=== PATIENT | male | born 1955 | race Caucasian/White ===

== ENCOUNTER 2017-10-01 05:41 | Inpatient (IN) | payer BC, OTHER ==
[2017-09-09 10:51] VITALS: BMI 37.0
--- NOTE | 2017-09-09 11:22 | PAT Medication Instructions ---
Service Date Sep 09, 2017. Current Home Medication List Aspirin (Aspirin Ec), 81 MG PO Q2D Bupropion (Wellbutrin Sr), 150 MG PO BID Celecoxib (CeleBREX), 200 MG PO BID Cholecalciferol (Vitamin D3), 1 TAB PO QAM Docusate Sodium (Stool Softener Extra Stre), 250 MG PO QAM Duloxetine HCl (Cymbalta), 1 CAP PO QAM Exenatide (Bydureon), 1 DOSE IM WEEKLY Fenofibrate (Tricor ), 145 MG PO HS Furosemide (Lasix), 40 MG PO QAM Glimepiride (Glimepiride), 2 TAB PO QAM Glucosamine Sulfate (Glucosamine), 1,000 MG PO BID Lisinopril (Prinivil), 10 MG PO QAM Magnesium Oxide (Mag-Ox), 2 TAB PO QAM Metformin Hcl (Glucophage Ext Rel), 1,000 MG PO BID Montelukast Sodium (Singulair), 10 MG PO QPM Pantoprazole (Protonix), 40 MG PO QAM Probiotic Product (Probiotic), 1 CAP PO QAM Sucralfate (Carafate), 1 GM PO QID Medication Instructions For Your Scheduled Surgery -Contact your surgeon for instructions for: Aspirin (Aspirin Ec), 81 MG PO Q2D Celecoxib (CeleBREX), 200 MG PO BID Continue as directed: Exenatide (Bydureon), 1 DOSE IM WEEKLY - Hold the following medications 2 weeks prior to surgery: Glucosamine Sulfate (Glucosamine), 1,000 MG PO BID - Hold the following medications 48 hours prior to surgery: Metformin Hcl (Glucophage Ext Rel), 1,000 MG PO BID - Hold the following medications the morning of surgery: Sucralfate (Carafate), 1 GM PO QID Probiotic Product (Probiotic), 1 CAP PO QAM Lisinopril (Prinivil), 10 MG PO QAM Magnesium Oxide (Mag-Ox), 2 TAB PO QAM Glimepiride (Glimepiride), 2 TAB PO QAM Furosemide (Lasix), 40 MG PO QAM Cholecalciferol (Vitamin D3), 1 TAB PO QAM Docusate Sodium (Stool Softener Extra Stre), 250 MG PO QAM - Take the following medications the morning of surgery with a sip of water: Pantoprazole (Protonix), 40 MG PO QAM Bupropion (Wellbutrin Sr), 150 MG PO BID Duloxetine HCl (Cymbalta), 1 CAP PO QAM - Hold the following the night before sugery: Fenofibrate (Tricor ), 145 MG PO HS -Take the following medications as scheduled the night before surgery: Sucralfate (Carafate), 1 GM PO QID Montelukast Sodium (Singulair), 10 MG PO QPM Bupropion (Wellbutrin Sr), 150 MG PO BID If you have any questions please call us at [phone] or [phone] or [phone]
--- NOTE | 2017-09-09 12:20 | DIAGNOSTIC IMAGING REPORT ---
CHEST 2 VIEWS ROUTINE CLINICAL HISTORY: Preoperative chest COMPARISON STUDY: No previous studies for comparison. FINDINGS: There is mild elevation/eventration right hemidiaphragm. The heart is normal in size. There is no failure. There is no focal pulmonary consolidation. There are no pleural effusions. There are postsurgical changes of a reversed total right shoulder arthroplasty[ IMPRESSION: Moderate elevation/eventration of the right hemidiaphragm. Otherwise negative chest Electronically signed by: Ti Jimenez M.D. 09/09/2017 12:18 PM Dictated Date/Time: 09/09/2017 12:18 PM
[2017-09-09 12:29] LABS: BASO % 0.6 %; BASO ABS # 0.05 K/uL (0-0.2); COMPLETE YES; EOS % 1.7 %; IG% 0.1 %; LYMPH % 24.9 %; LYMPH ABS # 2.18 K/uL (1.2-3.4); MEAN CELL VOLUME 88.6 fL (80-100); MEAN CORPUSCULAR HEMOGLOBIN 28.9 pg (25-34); MEAN CORPUSCULAR HGB CONC 32.6 g/dl (32-36); MEAN PLATELET VOLUME 10.2 fL (7.4-10.4); MONO % 7.9 %; NEUT % 64.8 %; PLATELET COUNT 358 K/uL (130-400); RED BLOOD COUNT 4.74 M/uL (4.7-6.1); URINE APPEARANCE CLEAR (CLEAR); URINE BILIRUBIN NEG (NEG); URINE COLOR YELLOW; URINE NITRITE NEG (NEG); URINE SPECIFIC GRAVITY 1.016 (1.000-1.030); UROBILINOGEN NEG (NEG); WHITE BLOOD COUNT 8.77 K/uL (4.8-10.8)
[2017-09-09 12:32] LABS: MANUAL MICROSCOPIC REQUIRED? NO; REVIEW REQ? NO
[2017-09-09 14:19] LABS: BUN/CREATININE RATIO 24.5 (10-20); CALCIUM 9.8 mg/dl (8.5-10.1); CREATININE 1.3 mg/dl (0.60-1.40); POTASSIUM 4.4 mmol/L (3.5-5.1)
[2017-10-01] VITALS (15 sets, daily range): BP systolic 131–163; BP diastolic 70–90; PULSE 71–92; TEMP 36.3–36.8; O2SAT 94–98; Ht 177.8 cm; Wt 118.4 kg
[~2017-10-01] VITALS: Ht 177.8 cm; Wt 118.4 kg
[~2017-10-01 05:41] MED LIST: ASPI81TA28 PO; BUPR-79 PO; CHOL1000 PO; CLB/200 PO; CYM/30 PO; DOCU1CAP PO; EXEN1INJ3 IM; FENO145T26 PO; FRS/40 PO; GLIM1TAB2 PO; GLUC10007 PO; LISI10TA PO; MAGN400T6 PO; METF1TAB53 PO; MISCCAP80 PO; MONT1TAB3 PO; PANT40TA PO; SUCR1TAB29 PO
[2017-10-01] MEDS ORDERED: CEFAZOLIN 2000MG IV PUSH 10 ML IV SCH (06:00)
[2017-10-01] MEDS ORDERED: CEFAZOLIN SOD 2000MG/10 ML IV PUSH IV ONE (06:35)
[2017-10-01] MEDS ORDERED: MIDAZOLAM HCL 1 MG/ML 2ML VIAL ONE (06:47)
[2017-10-01] MEDS ORDERED: FENTANYL CITRATE INJ 50 MCG/1 ML 2 ML VIAL ONE ×3 (06:47→09:37)
[2017-10-01] MEDS ORDERED: BACITRACIN 50000 UNIT VIAL ONE (06:58)
[2017-10-01] MEDS ORDERED: BUPIVACAINE/EPINEPHRINE 0.5% MPF 1:200,000 30 ML VIAL ONE (06:58)
[2017-10-01] MEDS ORDERED: LACTATED RINGER'S 1000ML 1,000 ML IV SCH (07:00)
--- NOTE | 2017-10-01 07:37 | History & Physical Bridge Note ---
H&P Re-Evaluation Bridge Note: I have examined the patient, reviewed the History & Physical and in the interval since the performance of the History & Physical I have noted the following changes of clinical significance: No changes noted
--- NOTE | 2017-10-01 07:39 | History and Physical ---
History & Physical Date Oct 01, 2017. Chief Complaint Neck and arm pain History of Present Illness The patient is a 62 year old male with complaints of neck and arm pain Additional History Hepatic Disease: No Endocrine Disorder: No Kidney Disease: No Hypertension: Yes Heart Disease: No Bleeding Tendencies: No Infectious Diseases: No Allergies Coded Allergies: No Known Allergies (Unverified , 10/01/17) Home Medications Scheduled Aspirin (Aspirin Ec), 81 MG PO Q2D Bupropion (Wellbutrin Sr), 150 MG PO BID Celecoxib (CeleBREX), 200 MG PO BID Cholecalciferol (Vitamin D3), 1 TAB PO QAM Docusate Sodium (Stool Softener Extra Stre), 250 MG PO QAM Duloxetine HCl (Cymbalta), 1 CAP PO QAM Exenatide (Bydureon), 1 DOSE IM WEEKLY Fenofibrate (Tricor ), 145 MG PO HS Furosemide (Lasix), 40 MG PO QAM Glimepiride (Glimepiride), 2 TAB PO QAM Glucosamine Sulfate (Glucosamine), 1,000 MG PO BID Lisinopril (Prinivil), 10 MG PO QAM Magnesium Oxide (Mag-Ox), 2 TAB PO QAM Metformin Hcl (Glucophage Ext Rel), 1,000 MG PO BID Montelukast Sodium (Singulair), 10 MG PO QPM Pantoprazole (Protonix), 40 MG PO QAM Probiotic Product (Probiotic), 1 CAP PO QAM Sucralfate (Carafate), 1 GM PO QID Physical Examination Skin: warm/dry, no rash Eyes: normal inspection, EOMI, sclerae normal ENT: normal ENT inspection, pharynx normal Head: normocephalic, atraumatic Neck: supple, no adenopathy, trachea midline Respiratory/Chest: lungs clear, normal breath sounds, no respiratory distress Cardiovascular: regular rate, rhythm, no edema, no murmur Abdomen / GI: normal bowel sounds, non tender Back: normal inspection Extremities: normal inspection, normal range of motion Neurologic/Psych: no motor/sensory deficits, alert, normal reflexes, oriented x 3 Diagnosis Cervical spinal stenosis Plan of Treatment C4 corpectomy
[2017-10-01] MEDS ORDERED: HYDROmorphone INJ 2 MG/ML SYR/VIAL ONE (08:19)
[2017-10-01] MEDS ORDERED: SODIUM CHLORIDE 0.9% PF 50 ML VIAL ONE (08:21)
[2017-10-01] MEDS ORDERED: ONDANSETRON INJ 2 MG/ML 2 ML VIAL IV PRN ×2 (08:30→09:45)
[2017-10-01] MEDS ORDERED: EpHEDrine SULFATE INJ 50 MG/ML AMP IV PRN (08:30)
[2017-10-01] MEDS ORDERED: HYDROmorphone INJ 2 MG/ML SYR/VIAL IV PRN (08:30)
[2017-10-01] MEDS ORDERED: ATROPINE SULFATE 0.1 MG/ML 5ML SYR IV PRN (08:30)
[2017-10-01] MEDS ORDERED: PHENYLEPHRINE 100MCG/ML 5ML SYR IV PRN (08:30)
[2017-10-01] MEDS ORDERED: PROPOFOL IV EMULSION 10 MG/ML 20 ML VIAL IV ONE (09:29)
[2017-10-01] MEDS ORDERED: ONDANSETRON INJ 2 MG/ML 2 ML VIAL ONE (09:29)
[2017-10-01] MEDS ORDERED: GLYCOPYRROLATE INJ 0.2 MG/ML VIAL ONE (09:29)
[2017-10-01] MEDS ORDERED: ROCURONIUM BROMIDE 10 MG/ML 5 ML VIAL IV ONE (09:29)
[2017-10-01] MEDS ORDERED: LIDOCAINE HCL 2% 2 ML VIAL (20MG/ML) ONE (09:29)
[2017-10-01] MEDS ORDERED: EpHEDrine SULFATE 50MG/5ML SYR ONE (09:29)
[2017-10-01] MEDS ORDERED: NEOSTIGMINE METHYLSULFATE 1 MG/ML 10ML VIAL ONE (09:29)
[2017-10-01] MEDS ORDERED: DEXAMETHASONE SOD INJ 4 MG/ML VIAL ONE (09:29)
[2017-10-01] MEDS ORDERED: FLOSEAL HEMOSTATIC MATRIX 5ML TOP ONE (09:36)
[2017-10-01] MEDS ORDERED: DiphenhydrAMINE HCL 50 MG/ML VIAL IV PRN (09:45)
[2017-10-01] MEDS ORDERED: MAGNESIUM HYDROXIDE SUSP 30 ML UDC PO PRN (09:45)
[2017-10-01] MEDS ORDERED: DO NOT ADMINISTER FLU VACCINE PRN ×3 (09:45)
[2017-10-01] MEDS ORDERED: DEXAMETHASONE INJ 8 MG in SYRINGE 0 ML IV PRN (09:45)
[2017-10-01] MEDS ORDERED: LORAZEPAM INJ 0.5 MG in SYRINGE 0.75 ML IV PRN (09:45)
[2017-10-01] MEDS ORDERED: DO NOT ADMINISTER PNEUMOCOCCAL VACCINE PRN ×2 (09:45)
[2017-10-01] MEDS ORDERED: LORAZEPAM 0.5 MG TAB PO PRN (09:45)
[2017-10-01] MEDS ORDERED: NALOXONE HCL 0.4 MG/1 ML VIAL/CARP IV PRN (09:45)
[2017-10-01] MEDS ORDERED: RACEPINEPHRINE 2.25% NEBU SOLN 0.5 ML VIAL INH PRN (09:45)
[2017-10-01] MEDS ORDERED: ACETAMINOPHEN IV 100 ML IV PRN (09:45)
--- NOTE | 2017-10-01 09:45 | [facility] Operative Report ---
Operative Report Operative Date Oct 01, 2017. Pre-Operative Diagnosis Cervical spinal stenosis Post-Operative Diagnosis same as pre-operative Procedure(s) Performed #1 anterior cervical corpectomy C4. #2 anterior cervical arthrodesis C3 to C5. #3 placement peek cage 23 mm in height C3 to C 5. #4 placement of low plate and screws from C3 to C5. #5 placement of locally harvested morcellized autograft combined with ostial amp in the interbody cage. Surgeon Dr. Brennon Guerrero Apple Picker Surgeon(s) GOPI Sahni Estimated Blood Loss 25ml Findings Severe spinal stenosis Specimens none per surgeon Description of Procedure Patient was met with preoperatively case discussed all questions addressed. After informed consent was obtained patient was taken operative suite placed in a supine position the head in [employer] headholder. All bony prominences were well-padded eyes were inspected to ensure no external pressure placed upon them. This point the anterior cervical spine was prepped and draped in the normal sterile fashion. With the assistance of fluoroscopy identified the C4 vertebral body. A transverse incision was placed along the right anterior aspect of cervical spine overlying this region. Sharp dissection with the assistance of bipolar electrocautery was performed onto an exposing the anterior cervical spine from C3 to C5. I then performed a complete discectomy of C3 4 out to the uncovertebral joints bilaterally followed by C45. Platinum distracting pins were then placed in C3 and C5 to distract across C5 vertebral body. A complete corpectomy was then performed including removal of all posterior annular fibers and longitudinal ligament and bilateral foraminotomies. After complete decompression endplates were burred to subcortical bleeding bone and a 23 mm peek cage filled with locally harvested morcellized autograft and ostial amp bone graft tapped in position. Distracting apparatus was removed all anterior osteophytes burred to a smooth cortical surface and a low plate and screws applied with the assistance of fluoroscopy. Incision was in copious irrigated explored to ensure there is no damage to surrounding structures remaining bleeding 10 round ALDA drain was inserted. Incision was then closed with 1 Vicryl in the fascia 2-0 Vicryl subcutaneous tediously 4 Monocryl for Bebe closure Steri-Strips sterile dressings placed. Patient we can taken to PACU stable condition. Please note Maty Costa was present at the entire procedure involved in patient positioning complex portions of the surgery and final skin closure. I attest to the content of the Intraoperative Record and any orders documented therein. Any exceptions are noted below.
[2017-10-01] MEDS ORDERED: LABETALOL HCL IV 5 MG/ML 20ML IV ONE (09:48)
[2017-10-01] MEDS ORDERED: PHARMACY GLYCEMIC MGMT CONSULT PRN (09:52)
[2017-10-01] MEDS ORDERED: HYDROmorphone INJ 1 MG/ML SYR IV PRN (10:00)
--- NOTE | 2017-10-01 10:18 | DIAGNOSTIC IMAGING REPORT ---
Cervical SPINE, INTRAOPERATIVE FLUOROSCOPY HISTORY: C4 corpectomy with ACDF.. FLUOROSCOPY TIME: 9 seconds. FINDINGS: Intraoperative fluoroscopy was provided for the cervical spine. 2 fluoroscopic spot images were obtained. Anterior cervical discectomy and fusion at C3-C5 with a C4 corpectomy. The hardware appears intact. IMPRESSION: Fluoroscopy provided for a C3-C5 ACDF.. Electronically signed by: Palomo Bray M.D. 10/01/2017 10:17 AM Dictated Date/Time: 10/01/2017 10:16 AM
--- NOTE | 2017-10-01 10:40 | Anesthesiology Progress Note ---
Anesthesia Post Op Note Date & Time Oct 01, 2017 at 10:40 Vital Signs Pain Intensity: 0 Vital Signs Past 12 Hours Date Time Temp Pulse Resp B/P (MAP) Pulse Ox O2 Delivery O2 Flow Rate FiO2 10/01/17 10:35 70 16 145/83 97 Nasal Cannula 2 10/01/17 10:25 71 16 141/83 97 Nasal Cannula 2 10/01/17 10:15 69 16 145/82 100 Oxymask 10 10/01/17 10:05 69 16 144/80 99 Oxymask 10 10/01/17 09:55 36.3 73 16 156/86 96 Oxymask 10 10/01/17 06:08 36.8 81 18 159/90 98 Room Air Notes Mental Status: alert / awake / arousable, participated in evaluation Pt Amnestic to Procedure: Yes Nausea / Vomiting: adequately controlled Pain: adequately controlled Airway Patency, RR, SpO2: stable & adequate BP & HR: stable & adequate Hydration State: stable & adequate Anesthetic Complications: no major complications apparent
--- NOTE | 2017-10-01 10:59 | Pharmacy Progress Note ---
Glycemic Control Intl Consult Date of Service Oct 01, 2017. Scope Glycemic Pharmacist consulted by Dr Guerrero on 10/01/17 for glycemic control and to write orders per [facility] inpatient glycemic control protocol Objective Weight (Kilograms): 118.40 Accuchecks BSG (last 24hrs): Test 10/01/17 06:00 10/01/17 09:57 Bedside Glucose 138 mg/dl (70-99) 131 mg/dl (70-99) Recent Pertinent Medications Outpatient Anti-diabetic Regimen: * Bydureon 2 mg weekly * Amaryl 2mg qAM * Metformin ER 1 gm BID * A1c = unknown Risk Factors for Insulin Resistance: * Steroids: Decadron intraop (potentially up to 12 mg), 6 mg IV q8h x 3 doses postop * Recent Surgery: POD 0 s/p spinal surgery * Diet: ordered a clear liquid diet postop Assessment & Plan ASSESSMENT: * 62 y/o male with a history of type 2 diabetes, unknown control as no recent A1c available * Baseline BSGs today are not awful - 138 and 131 * He is POD 0 s/p spinal surgery and will receive the usual 3 doses of postop Decadron, which will significantly elevate BSGs * Will plan to hold outpatient regimen and utilize basal/bolus insulin as an inpatient, with plans to resume outpatient regimen 1-2 days prior to discharge * Initial dosing for today based on insulin calculator estimates using a stress of 3 and patient's weight, with the FULL 24 hour dose of basal given at once to combat the postop steroids PLAN FOR INPATIENT GLYCEMIC CONTROL: * Holding outpatient oral diabetes medications * Basal insulin with LANTUS 60 units x 1 now, further dosing tomorrow will be based upon BSGs * Correctional Insulin with NOVOLOG / REGULAR per scale ACHS + 0200 * Goal Range: Low 110 mg/dL - High 150 mg/dL * Correction Factor: 15 mg/dL/unit * Nutritional / Prandial insulin per carb ratio of 1 unit per 5 grams CHO consumed * A1c with AM labs to help guide outpatient recommendations * Please note that the plan above was derived based on current level of insulin resistance and hospital stress. These recommendations are appropriate for inpatient admission only. Plan of care upon discharge will need to be reassessed to avoid potential outpatient hypo/hyperglycemia. Thank you.
[2017-10-01] MEDS ORDERED: DEXTROSE 50% 50 ML SYR IV PRN (11:45)
[2017-10-01] MEDS ORDERED: GLUCOSE 40% GEL 15 GM TUBE PO PRN (11:45)
[2017-10-01] MEDS ORDERED: GLUCAGON FOR INJ 1 MG VIAL SQ PRN (11:45)
[2017-10-01] MEDS ORDERED: INSULIN GLARGINE SOLOSTAR 100 UNITS/ML 3 ML PEN SC ONE (11:45)
[2017-10-01] MEDS ORDERED: GLUCOSE 10 TABS/TUBE PO PRN (11:45)
[2017-10-01] MEDS: LACTATED RINGER'S 1000ML 1,000 ML IV SCH ×2 (11:46→21:26)
[2017-10-01] MEDS ORDERED: SCOPOLAMINE 1.5 MG TDSY TD SCH (12:00)
[2017-10-01] MEDS ORDERED: SUCRALFATE 1 GM TAB PO SCH (13:00)
[2017-10-01] MEDS ORDERED: SUCRALFATE 1 GM TAB PO ONE (13:00)
[2017-10-01] MEDS: OXYCODONE HCL IR 5 MG TAB (IMMEDIATE RELEASE) PO PRN ×3 (13:28→19:59)
[2017-10-01] MEDS: INSULIN ASPART 100 UNITS/ML 3 ML PEN SC SCH ×3 (13:35→21:00)
[2017-10-01] MEDS: CEFAZOLIN IV 2,000 MG in SYRINGE 0 ML IV SCH ×2 (13:36→21:24)
--- NOTE | 2017-10-01 13:53 | Discharge Instructions ---
Discharge Instructions Date of Service Oct 01, 2017. Admission Reason for Admission: Spinal Stenosis Discharge Discharge Diagnosis / Problem: cervical spinal stenosis Discharge Goals Goal(s): Improve function Activity Recommendations Activity Limitations: per Instructions/Follow-up section . Instructions / Follow-Up Instructions / Follow-Up ACTIVITY RECOMMENDATIONS: SELF CARE INSTRUCTIONS AFTER CERVICAL FUSIONS 1. No smoking. Smoking drastically decreases the chance of a solid fusion. 2. No bending, lifting more than 5 pounds, or twisting (roll like a log when turning in bed). 3. You may shower 3 days after surgery. Thoroughly dry wound. Do not soak in the tub. 4. Cervical collar: Must be worn at all times including sleeping. You may remove the brace only to bath, eat and if you are sitting in a recliner. 5. Please walk as much as you can for exercise. Gradually increase the distance that you walk as your endurance increases. SPECIAL CARE INSTRUCTIONS: VERY IMPORTANT TO READ AND REVIEW A. Do not take any anti-inflammatory medications (i.e. Indocin, Advil, Aspirin, Naprosyn, Aleve, Motrin, etc.) as these may inhibit the chance of a solid fusion. Tylenol is okay to take. B. Your surgical incision has been closed with a cosmetic suture under the skin that will dissolve in about 6 weeks. In 14 days, you can use a pair of clean scissors and cut the suture that is left outside of the skin at the ends of your incision. C. Complications are uncommon, but please contact us if you have any signs or symptoms of: 1. wound infection (fever higher than 102.5 degrees F, redness, separation of wound, drainage, or increasing pain from the incision) 2. blood clots in legs (pain, swelling, redness and warmth in legs) 3. urinary tract infection (fever higher than 102.5 degrees, burning upon urination or increased frequency of urination) 4. nerve problems (inability to walk on your toes or heels, numbness, loss of bowel or bladder control) 5. any other symptoms that concern you. D. Please call the office at if you have any concerns or questions about your operation or recovery. MANAGING PAIN AFTER SPINAL SURGERY 1. Narcotic medication is intended for short-term use and will be provided for surgical pain. Surgical pain usually lasts for a period of 4-6 weeks. Narcotic medication includes Percocet, Vicodin, Darvocet, Tylenol #3 or Lortab. 2. Longer-term pain is more appropriately treated with non-narcotic medication such as Tylenol ES. 3. Muscle spasm is not appropriately treated with narcotics. Muscle relaxers such as Soma, Flexeril or Skelaxin can be used along with Tylenol ES. 4. Remember that we all live with some "aches and pains". This is not unusual or uncommon after an injury or as we get older. 5. We will provide appropriate medication within the normal guidelines of their prescribed use. We will also be very cautious and aware of potential abuse and extended duration of patients' medication needs. 6. Please allow 2-3 days to process refills. Prescriptions will not be mailed but must be picked up at the office. FOLLOW UP VISIT: Keep your scheduled follow-up appointment. Any questions, please call the office at . Current Hospital Diet Patient's current hospital diet: Clear Liquid Diet, Diabetes Type 2 Diet Discharge Diet Recommended Diet: Regular Diet Procedures Procedures Performed: #1 anterior cervical corpectomy C4. #2 anterior cervical arthrodesis C3 to C5. #3 placement peek cage 23 mm in height C3 to C 5. #4 placement of low plate and screws from C3 to C5. #5 placement of locally harvested morcellized autograft combined with ostial amp in the interbody cage. Pending Studies Studies pending at discharge: no Medical Emergencies . Who to Call and When: Medical Emergencies: If at any time you feel your situation is an emergency, please call 911 immediately. . Non-Emergent Contact Non-Emergency issues call your: Primary Care Provider . "Provider Documentation" section prepared by Brennon Guerrero. . VTE Core Measure Inpt VTE Proph given/why not?: Janice Strong, SCD's
[2017-10-01] MEDS ORDERED: RXC5 PO (13:54)
[2017-10-01] MEDS: CHECK SCOPOLAMINE PATCH PLACEMENT SCH (15:35)
[2017-10-01] MEDS: HYDROmorphone INJ 0.5 MG/0.5 ML SYR IV PRN ×2 (15:38→21:36)
[2017-10-01] MEDS: SUCRALFATE 1 GM/10 ML UDC PO SCH ×2 (17:47→21:24)
[2017-10-01] MEDS: DEXAMETHASONE INJ 6 MG in SYRINGE 0 ML IV SCH (17:50)
[2017-10-01] MEDS ORDERED: FENOFIBRATE 145 MG TAB PO SCH (21:00)
[2017-10-01] MEDS ORDERED: MONTELUKAST SOD 10 MG TAB PO SCH (21:00)
[2017-10-01] MEDS: DOCUSATE SODIUM 100 MG CAP PO SCH (21:25)
[2017-10-01] MEDS: BuPROPion SR 150 MG TABCR PO SCH (21:25)
[2017-10-02] VITALS (11 sets, daily range): BP systolic 138–158; BP diastolic 77–89; PULSE 76–87; TEMP 36.3–36.9; O2SAT 93–97
[2017-10-02] MEDS: CHECK SCOPOLAMINE PATCH PLACEMENT SCH ×2 (00:11→08:02)
[2017-10-02] MEDS ORDERED: INSULIN ASPART 100 UNITS/ML 3 ML PEN SC ONE (02:00)
[2017-10-02] MEDS: DEXAMETHASONE INJ 6 MG in SYRINGE 0 ML IV SCH ×2 (02:18→09:53)
[2017-10-02] MEDS: CEFAZOLIN IV 2,000 MG in SYRINGE 0 ML IV SCH (06:02)
[2017-10-02] MEDS: SUCRALFATE 1 GM/10 ML UDC PO SCH ×2 (08:02→11:46)
[2017-10-02] MEDS ORDERED: INSULIN GLARGINE SOLOSTAR 100 UNITS/ML 3 ML PEN SC ONE ×2 (08:30→21:00)
[2017-10-02 08:38] LABS: ESTIMATED AVERAGE GLUCOSE 128 mg/dl; HA1C FLAG Normal (Normal)
[2017-10-02] MEDS ORDERED: PANTOprazole SOD 40 MG TAB PO SCH (09:00)
[2017-10-02] MEDS ORDERED: MAGNESIUM OXIDE 400 MG TAB PO SCH (09:00)
[2017-10-02] MEDS ORDERED: LISINOPRIL 10 MG TAB PO SCH (09:00)
[2017-10-02] MEDS ORDERED: FUROSEMIDE 40 MG TAB PO SCH (09:00)
[2017-10-02] MEDS ORDERED: DULOXETINE (CYMBALTA) 30 MG CAP PO SCH (09:00)
--- NOTE | 2017-10-02 09:03 | Anesthesiology Progress Note ---
Anesthesia Post Op Note Date & Time Oct 02, 2017 at 09:03 Vital Signs Pain Intensity: 0.0 Vital Signs Past 12 Hours Date Time Temp Pulse Resp B/P (MAP) Pulse Ox O2 Delivery O2 Flow Rate FiO2 10/02/17 08:05 96 Room Air 10/02/17 07:43 36.5 84 19 158/89 (112) 93 Room Air 10/02/17 07:12 76 14 94 Nasal Cannula 2.0 10/02/17 06:10 36.3 77 18 142/77 94 Nasal Cannula 2.0 Humidified Oxygen 10/02/17 04:15 36.5 86 17 146/78 97 Nasal Cannula 2.0 Humidified Oxygen 10/02/17 02:55 79 16 97 Nasal Cannula 2.0 10/02/17 02:24 36.4 87 17 138/81 97 Nasal Cannula 2.0 Humidified Oxygen 10/02/17 00:14 36.4 87 17 144/78 96 Nasal Cannula 2.0 Humidified Oxygen 10/01/17 23:13 86 16 94 Nasal Cannula 2.0 10/01/17 22:11 36.5 92 18 163/87 96 Nasal Cannula 2.0 Humidified Oxygen Notes Mental Status: alert / awake / arousable, participated in evaluation Pt Amnestic to Procedure: Yes Nausea / Vomiting: adequately controlled Pain: adequately controlled Airway Patency, RR, SpO2: stable & adequate BP & HR: stable & adequate Hydration State: stable & adequate Anesthetic Complications: no major complications apparent
[2017-10-02] MEDS: DOCUSATE SODIUM 100 MG CAP PO SCH (09:05)
[2017-10-02] MEDS: BuPROPion SR 150 MG TABCR PO SCH (09:05)
[2017-10-02] MEDS: INSULIN ASPART 100 UNITS/ML 3 ML PEN SC SCH (09:10)
--- NOTE | 2017-10-02 10:19 | Clinical Documentation Query ---
IDA Ewing : CLINICAL DOCUMENTATION QUERY Patient is a 62 year old male admitted to undergo elective posterior cervical spinal decompression and fusion. Noted history of hypertension. No other history noted despite lengthy home medication list. Please clarify as clinically appropriate as this affects measures of severity of illness and risk of mortality. In your clinical opinion is this patient being managed for: ( ) Type 2 diabetes mellitus, anxiety, depression, GERD, hypercholesterolemia ( ) Not Agree ( ) Other explanation of clinical findings (Please Explain) ( ) Unable to determine (Please Define) ( ) Need to Discuss The medical record reflects the following clinical findings, treatment, and risk factors. Clinical Indicators: As above Treatment: As above Risk Factors: Age, obesity Please clarify and document your clinical opinion in the progress notes and discharge summary. Terms such as "probable", "suspected", "likely", "questionable", "possible", or "still to be ruled out" are acceptable. IF IN AGREEMENT, YOU MUST DOCUMENT ABOVE DIAGNOSTIC STATEMENT IN DAILY PROGRESS NOTES AND DISCHARGE SUMMARY. This document is not part of the patient's record. Thank You, Arnav Chapman, MALCOLM [phone]
--- NOTE | 2017-10-02 11:22 | Pharmacy Progress Note ---
Pharmacy Glycemic Short Note 2 Date of Service Oct 02, 2017. ASSESSMENT: * BSGs 127-142 mg/dL over the past 24 hours * Received 67 units of insulin yesterday * With 2 more doses of Decadron today, will provide another dose of Lantus ( based on wt/stress level of 2 using full 24 hour dose) * Will wait until tonight to loosen the CF/CR PLAN FOR INPATIENT GLYCEMIC CONTROL: * Lantus 40 units this AM * Sliding scale dose for tonight if patient is still here * Continue Novolog ACHS * LOOSEN CF/CR to 20/7 with HS dosing PLAN FOR DISCHARGE: * A1c indicates excellent outpatient control * Continue outpatient regimen upon discharge * Since patient being discharged today and effects of steroids will still be on board, recommend to resume the Amaryl and metformin when he gets home
--- NOTE | 2017-10-02 12:25 | Discharge Summary ---
Orthopedic Discharge Summary Admission Date/Reason Oct 01, 2017 at 07:30 Spinal Stenosis. Discharge Date/Disposition Oct 02, 2017 Home Diagnosis Principal Diagnosis: Cervical spinal stenosis Admission Physical Exam As per Admitting History & Physical. Hospital Course Patient underwent anterior cervical discectomy corpectomy and fusion tolerated as well as taken to the orthopedic 4 postop we. Postop day #1 he was swallowing well no hoarseness arm symptoms improved subsequently discharge home discharge orders and instructions found on the chart for further review. Discharge Instructions Please refer to the electronic Patient Visit Report (Discharge Instructions) for additional information.
[2017-10-02] MEDS ORDERED: INSULIN ASPART 100 UNITS/ML 3 ML PEN SC SCH (21:00)
[2017-10-03] MEDS ORDERED: BISACODYL 10 MG SUPP PR PRN (06:00)
[2017-10-03] MEDS ORDERED: BISACODYL 5 MG TABEC PO PRN (06:00)
[2017-10-04] MEDS ORDERED: POLYETHYLENE (MIRALAX) 17 GM PACK PO SCH (09:00)
== END 2017-10-02 12:20 | disposition home or self-care (01) | DRG 473 ==
LOC: C.ACU 05:41 → C.3E 07:30 → ENRESERV 11:06
PROVIDERS: ADMIT Orthopaedic Surgery Orthopaedic Surgery of the Spine; ATTEND Orthopaedic Surgery Orthopaedic Surgery of the Spine
PROC: 0RB10ZZ Excision of Cervical Vertebral Joint, Open Approach (ICD-10-PCS; principal; 2017-10-01 07:45)
PROC: 0RG10A0 Fusion of Cervical Vertebral Joint with Interbody Fusion Device, Anterior Approach, Anterior Column, Open Approach (ICD-10-PCS; principal; 2017-10-01 07:45)
DX: M48.02 Spinal stenosis, cervical region (principal); E11.9 Type 2 diabetes mellitus without complications; I10 Essential (primary) hypertension; E78.5 Hyperlipidemia, unspecified; K21.9 Gastro-esophageal reflux disease without esophagitis; F32.9 Major depressive disorder, single episode, unspecified; E66.9 Obesity, unspecified; Z68.37 Body mass index [BMI] 37.0-37.9, adult; Z87.891 Personal history of nicotine dependence; Z79.82 Long term (current) use of aspirin; Z79.84 Long term (current) use of oral hypoglycemic drugs; Z79.899 Other long term (current) drug therapy

== ENCOUNTER → 2017-11-18 | Outpatient (CLI) | payer BC ==
[~2017-11-18] MED LIST changes: +GADAVIST IV PRN; +RXC5 PO
--- NOTE | 2017-11-18 09:41 | DIAGNOSTIC IMAGING REPORT ---
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 TECHNIQUE: Multisequence, multiplanar MR imaging of the brain was performed before and after the administration of intravenous contrast. IV contrast: 11 mL of Gadavist. COMPARISON: None. FINDINGS: Ventricles and sulci normal in size. Brain parenchyma normal in appearance with preserved wilkinson-white differentiation. No mass effect or midline shift. No restricted diffusion to suggest acute ischemia. No hemorrhage. No extra-axial fluid collection. Normal appearance of the hypoglossal canals. T2 skull base flow voids preserved. No abnormal parenchymal enhancement. Bone marrow signal intensity within the calvarium within normal limits. Minimal polypoid mucosal thickening in the maxillary sinuses. IMPRESSION: 1. No acute intracranial pathology. No abnormal enhancement. Electronically signed by: Jonathan Wisdom M.D. 11/18/2017 9:40 AM Dictated Date/Time: 11/18/2017 9:33 AM
== END | disposition home or self-care (01) ==
LOC: C.MRI 08:34
PROVIDERS: ATTEND Physician Assistant
DX: G52.3 Disorders of hypoglossal nerve (principal); R47.1 Dysarthria and anarthria